=== PATIENT | male | born 1975 | race American Indian/Alaskan Native ===

== ENCOUNTER 2020-12-15 03:22 | Emergency (ER) | payer SELFPAY ==
[2020-12-15 03:34] VITALS: BP 150/109
[2020-12-15] MEDS ORDERED: ASPIRIN 325 MG TAB PO ONE (03:59)
--- NOTE | 2020-12-15 04:03 | Event Note ---
ED Screening Note Date of service: 12/15/20 Time: 04:01 ED Screening Note: Patient is a 45-year-old -[place] male with a history of hypertension and previously diagnosed with CHF presents to the ED with acute onset persistent shortness of breath and chest tightness for the last 2 hours during sexual intercourse. Patient states that the shortness of breath and the chest tightness is constant since the onset 2 hours ago. Patient states that prior to having sexual intercourse he had taken an [id number]-nrprelf stimulant capsule called "miracle honey" to enhance his sexual performance, and that this is the second time he had taken the supplement. Patient states that he has never exp erienced the symptoms during sexual intercourse. Patient denies diaphoresis, syncope, dizziness, headache, abdominal pain, nausea and vomiting, numbness and tingling of left arm or change in vision. This initial assessment/diagnostic orders/clinical plan/treatment(s) is/are subject to change based on patients health status, clinical progression and re- assessment by fellow clinical providers in the ED. Further treatment and workup at subsequent clinical providers discretion. Patient/guardian urged not to elope from the ED as their condition may be serious if not clinically assessed and managed. Initial orders include: CBC, CMP, troponin, CXR, EKG, aspirin, BNP
--- NOTE | 2020-12-15 04:29 | XRay Report ---
CHEST 2 VIEWS INDICATION / CLINICAL INFORMATION: Chest Pain. COMPARISON: 12/10/09. FINDINGS: SUPPORT DEVICES: None. HEART / MEDIASTINUM: There is mild cardiomegaly and prominence of the central pulmonary vessels. The aorta is normal in caliber. LUNGS / PLEURA: Interstitial lung markings are mildly increased with Libia B lines and slight thicke anjelica of the fissures. No focal consolidation or effusion. No pneumothorax. ADDITIONAL FINDINGS: No significant additional findings. IMPRESSION: Mild cardiomegaly and mild congestive heart failure. Signer Name: Kelvin Castellanos MD Signed: 12/15/2020 4:24 AM Workstation Name: [id number] ([id number]
[2020-12-15 04:41] LABS: Basophils % (Auto) 0.9 % (0.0-1.8); Eosinophils # (Auto) 0.2 K/mm3 (0.0-0.4); Eosinophils % (Auto) 3.9 % (0.0-4.3); Hematocrit 45.8 % (35.5-45.6); Hemoglobin 15.7 gm/dl (11.8-15.2); Lymphocytes # (Auto) 2.3 K/mm3 (1.2-5.4); Mean Corpuscular HGB Conc 34 % (32-34); Mean Corpuscular Volume 100 fl (84-94); Monocytes # (Auto) 0.4 K/mm3 (0.0-0.8); Monocytes % (Auto) 7.5 % (0.0-7.3); Platelet Count 181 K/mm3 (140-440); Red Blood Count 4.57 M/mm3 (3.65-5.03); Red Cell Distribution Width 15.1 % (13.2-15.2)
[2020-12-15 04:50] LABS: BUN/Creatinine Ratio 12; Blood Urea Nitrogen 14 mg/dL (9-20); Calcium 8.5 mg/dL (8.4-10.2); Hemolysis Index 9
[2020-12-15 04:52] LABS: Alanine Aminotransferase 25 units/L (7-56); Albumin 4.2 g/dL (3.9-5)
[2020-12-15 04:59] LABS: Bilirubin,Direct < 0.2 mg/dL (0-0.2)
--- NOTE | 2020-12-15 06:33 | Emergency Department Report ---
Blank Doc - Documentation Documentation: Patient eloped before I see him.
--- NOTE | 2020-12-16 10:39 | Electrocardiograph Report ---
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
== END 2020-12-15 07:13 | disposition left against medical advice (07) ==
LOC: ED 03:22
DX: R07.89 Other chest pain (principal); Z53.21 Procedure and treatment not carried out due to patient leaving prior to being seen by health care provider
CPT/HCPCS: 36415; 71046; 80048; 80076; 83880; 85025; 93005

== ENCOUNTER 2021-02-13 09:15 | Emergency (ER) | payer SELFPAY ==
--- NOTE | 2021-02-13 10:21 | Emergency Department Report ---
HPI - General Chief Complaint: GI Bleed Time Seen by Provider: 02/13/21 09:52 - HPI HPI: This is a 45-year-old -Congolese male who presents to the emergency department with 2 complaints. First, the patient has been having a 2-day history of low back pain. He says that it started just as he was getting out of the car. But otherwise he denies any trauma or injury, new exercise regimen, any heavy lifting, or obvious inciting event. He denies any problems with incontinence, bowel or bladder retention, numbness or paresthesias, weakness, or any neurological deficits. He has not taken anything for his symptoms prior to presentation. Secondly, the patient had a bowel movement this morning in which he saw gross red blood in the toilet. He denies any rectal pain. He denies any previous history of this. Patient denies any past medical history. He is a tobacco smoker. ED Past Medical Hx - Past Medical History Previous Medical History?: Yes Hx Hypertension: Yes Hx Congestive Heart Failure: Yes - Surgical History Past Surgical History?: No - Social History Smoking Status: Never Smoker Substance Use Type: None - Medications Home Medications: Home Medications Medication Instructions Recorded Confirmed Last Taken Type hydroCHLOROthiazide [HCTZ] 12.5 mg PO QDAY #30 capsule 12/07/14 Unknown Rx Cyclobenzaprine [Flexeril] 10 mg PO TID PRN #12 tablet 02/13/21 Unknown Rx ED Review of Systems ROS: Stated complaint: POSS GI BLEED Other details as noted in HPI Comment: All other systems reviewed and negative Constitutional: denies: chills, fever Eyes: denies: eye pain, vision change ENT: denies: ear pain, throat pain Respiratory: denies: cough, shortness of breath Cardiovascular: denies: chest pain, palpitations Gastrointestinal: hematochezia. denies: abdominal pain, vomiting Genitourinary: denies: dysuria, discharge Musculoskeletal: back pain. denies: arthralgia Skin: denies: rash, lesions Neurological: denies: headache, weakness Physical Exam - Physical Exam Physical Exam: GENERAL: The patient is well-developed well-nourished. HENT: Normocephalic. Atraumatic. Patient has moist mucous membranes. EYES: Extraocular motions are intact. NECK: Supple. Trachea is midline. CHEST/LUNGS: Clear to auscultation. There is no respiratory distress noted. HEART/CARDIOVASCULAR: Regular. There is no tachycardia. There is no murmur. ABDOMEN: Abdomen is soft, nontender. Patient has normal bowel sounds. There is no abdominal distention. SKIN: Skin is warm and dry. NEURO: The patient is awake, alert, and oriented. The patient is cooperative. The patient has no focal neurologic deficits. Normal speech. MUSCULOSKELETAL: There is no tenderness or deformity. There is no limitation range of motion. RECTAL: No external hemorrhoids or lesions seen. No gross melena or hematochezia. Stool is positive on guaiac testing. BACK: No midline thoracic or lumbar tenderness to palpation. There is reproducible lumbar paraspinal tenderness to palpation bilaterally with associated taut musculature. ED Medical Decision Making - Lab Data Result diagrams: 02/13/21 10:24 02/13/21 10:24 Lab Results 02/13/21 02/13/21 Range/Units 10:24 10:24 WBC 4.1 L (4.5-11.0) K/mm3 RBC 4.27 (3.65-5.03) M/mm3 Hgb 14.7 (11.8-15.2) gm/dl Hct 42.9 (35.5-45.6) % MCV 100 H (84-94) fl MCH 34 H (28-32) pg MCHC 34 (32-34) % RDW 14.2 (13.2-15.2) % Plt Count 158 (140-440) K/mm3 Lymph % (Auto) 38.5 H (13.4-35.0) % Ulster % (Auto) 7.0 (0.0-7.3) % Eos % (Auto) 2.5 (0.0-4.3) % Baso % (Auto) 1.0 (0.0-1.8) % Lymph # (Auto) 1.7 (1.2-5.4) K/mm3 Ulster # (Auto) 0.3 (0.0-0.8) K/mm3 Eos # (Auto) 0.1 (0.0-0.4) K/mm3 Baso # (Auto) 0.0 (0.0-0.1) K/mm3 Add Manual Diff Complete Seg Neutrophils % 51.0 (40.0-70.0) % Nucleated RBC % Not Reportable Seg Neutrophils # 2.2 (1.8-7.7) K/mm3 WBC Morphology Not Reportable Hypersegmented Neuts Not Reportable Hyposegmented Neuts Not Reportable Hypogranular Neuts Not Reportable Smudge Cells Not Reportable Toxic Granulation Not Reportable Toxic Vacuolation Not Reportable Dohle Bodies Not Reportable Pelger-Huet Anomaly Not Reportable Cassandra Rods Not Reportable Platelet Estimate Not Reportable Clumped Platelets Not Reportable Plt Clumps, EDTA Not Reportable Large Platelets Not Reportable Giant Platelets Not Reportable Platelet Satelliting Not Reportable Plt Morphology Comment Not Reportable RBC Morphology Not Reportable Dimorphic RBCs Not Reportable Polychromasia Not Reportable Hypochromasia Not Reportable Poikilocytosis Not Reportable Anisocytosis Not Reportable Microcytosis Not Reportable Macrocytosis Not Reportable Spherocytes Not Reportable Pappenheimer Bodies Not Reportable Sickle Cells Not Reportable Target Cells Not Reportable Tear Drop Cells Not Reportable Ovalocytes Not Reportable Helmet Cells Not Reportable Avendaño-Alvo Bodies Not Reportable Pratt Rings Not Reportable [place] Cells Not Reportable Bite Cells Not Reportable Crenated Cell Not Reportable Elliptocytes Not Reportable Acanthocytes (Spur) Not Reportable Rouleaux Not Reportable Hemoglobin C Crystals Not Reportable Schistocytes Not Reportable Malaria parasites Not Reportable Jorge Bodies Not Reportable Hem Pathologist Commnt Not Reportable Sodium 142 (137-145) mmol/L Potassium 3.7 (3.6-5.0) mmol/L Chloride 104.7 (98-107) mmol/L Carbon Dioxide 29 (22-30) mmol/L Anion Gap 12 mmol/L BUN 14 (9-20) mg/dL Creatinine 1.1 (0.8-1.3) mg/dL Estimated GFR > 60 ml/min BUN/Creatinine Ratio 13 % Glucose 98 (75-100) mg/dL Calcium 8.5 (8.4-10.2) mg/dL - Medical Decision Making Regarding the patient's rectal bleeding with bright red blood, the patient does not appear in any acute distress. Rectal examination does not show any external hemorrhoid or lesion. There is no gross melena or hematochezia. Stool obtained was positive on guaiac testing. Patient's hemoglobin is 14.7. Patient will be discharged home to follow-up with gastroenterology and understands that he may need a colonoscopy in the near future. He will return to the closest emergency department with any increased rectal bleeding, or with any acute distress. The patient's low back pain occurred while he was getting out of a car. However, there was no other known trauma, injury or inciting event. There is no midline tenderness to palpation in the paraspinal lumbar muscles are taut with reproducible tenderness to palpation in this area. Patient does not have any issues with ambulation. There is no numbness or paresthesia, especially in the groin, and there is no bowel or bladder incontinence or retention. The edita adler's low back pain does not appear to be any emergent condition such as cauda equina, cord compression syndrome or any epidural abscess. He will be placed on a muscle relaxer. We discussed using heat or ice, although not directly against the skin, as well as some gentle stretching. He has been given a referral for a local orthopedist. Critical Care Time: No Critical care attestation.: If time is entered above; I have spent that time in minutes in the direct care of this critically ill patient, excluding procedure time. ED Disposition Clinical Impression: Rectal bleeding Low back pain Qualifiers: Chronicity: unspecified Back pain laterality: bilateral Sciatica presence: without sciatica Qualified Code(s): M54.5 - Low back pain Disposition: - TO HOME OR SELFCARE Is pt being admited?: No Condition: Stable Instructions: Rectal Bleeding, Acute Back Pain, Adult Additional Instructions: Please follow-up with a primary care physician in the next 2 days. I have given you a referral for [facility] to follow-up regarding the rectal bleeding. You may need a colonoscopy in the near future. I have given you a referral for a local orthopedist, Dr. Hopper, to follow-up regarding the low back pain. You have been prescribed a medication that is sedating and therefore should not be taken prior to driving, working, and responsible for children and in no way should be mixed with alcohol of any quantity. Return to the emergency department with any worsening of your symptoms, new or concerning symptoms not addressed during this current emergency department visit, or with any acute distress. Prescriptions: Cyclobenzaprine [Flexeril] 10 mg PO TID PRN #12 tablet PRN Reason: Muscle Spasm Referrals: PRIMARY CARE, [Primary Care Provider] - 3-5 Days [facility] [Provider Group] - 3-5 Days LEXI HOPPER MD [Staff Physician] - 3-5 Days Forms: Accompanied Note Time of Disposition: 11:40
[2021-02-13 11:13] LABS: Hematocrit 42.9 % (35.5-45.6); Hemoglobin 14.7 gm/dl (11.8-15.2); Mean Corpuscular HGB Conc 34 % (32-34); Mean Corpuscular Volume 100 fl (84-94); Platelet Count 158 K/mm3 (140-440); Red Blood Count 4.27 M/mm3 (3.65-5.03); Red Cell Distribution Width 14.2 % (13.2-15.2)
[2021-02-13 11:32] LABS: BUN/Creatinine Ratio 13; Blood Urea Nitrogen 14 mg/dL (9-20); Calcium 8.5 mg/dL (8.4-10.2); Hemolysis Index 10
[2021-02-13 11:45] VITALS: BP 150/89
[2021-02-13 12:19] LABS: Eosinophils # (Auto) 0.1 K/mm3 (0.0-0.4); Eosinophils % (Auto) 2.5 % (0.0-4.3); Lymphocytes # (Auto) 1.7 K/mm3 (1.2-5.4); Lymphocytes % (Auto) 38.5 % (13.4-35.0); Monocytes # (Auto) 0.3 K/mm3 (0.0-0.8)
== END 2021-02-13 11:43 | disposition home or self-care (01) ==
LOC: ED 09:15
DX: K62.5 Hemorrhage of anus and rectum (principal); M54.5 Low back pain; I11.0 Hypertensive heart disease with heart failure; I50.9 Heart failure, unspecified; Z79.899 Other long term (current) drug therapy
CPT/HCPCS: 36415; 80048; 85007; 85025

== ENCOUNTER 2021-03-09 00:46 | Inpatient (IN) | payer OTHER ==
[2021-03-09] MEDS ORDERED: ASPIRIN 325 MG TAB PO ONE (00:53)
[2021-03-09] MEDS ORDERED: SODIUM CHLORIDE 0.9% 1000 ML 1,000 ML IV ONE (01:37)
--- NOTE | 2021-03-09 01:38 | Emergency Department Report ---
HPI - General Chief Complaint: Dyspnea/Respdistress Time Seen by Provider: 03/09/21 01:34 - HPI HPI: 45-year-old male with history of hypertension, and CHF presents complaining of approximately 2 days of verity of symptoms including dry cough, low back pain, and then today he says he developed shortness of breath and palpitations. He also reports feeling very lightheaded. His shortness of breath is worse with exertion. He says he is eating and drinking but his stomach feels irritated. He is not vomiting. He has no abdominal pain. He does say he has not been taking any of his prescribed medications due to not having insurance. He denies having any chest pain. He also denies any headache, vision change, neck pain, syncope, focal weakness, sensory changes, saddle anesthesia, bowel/bladder incontinence/retention, increased lower extremity swelling, or any other complaints but he says he feels very dehydrated and that his mouth is dry. ED Past Medical Hx - Past Medical History Previous Medical History?: Yes Hx Hypertension: Yes Hx Congestive Heart Failure: Yes - Surgical History Past Surgical History?: No - Social History Smoking Status: Never Smoker Substance Use Type: None - Medications Home Medications: Home Medications Medication Instructions Recorded Confirmed Last Taken Type hydroCHLOROthiazide [HCTZ] 12.5 mg PO QDAY #30 capsule 12/07/14 Unknown Rx Cyclobenzaprine [Flexeril] 10 mg PO TID PRN #12 tablet 02/13/21 Unknown Rx ED Review of Systems ROS: Stated complaint: ASHLEY Other details as noted in HPI Physical Exam - Physical Exam Vital Signs: Vital Signs 03/09/21 03/09/21 03/09/21 00:52 01:14 01:16 Temperature 99 F Pulse Rate 102 H 107 H 110 H Respiratory 18 12 11 L Rate Blood Pressure Blood Pressure 165/115 [Left] O2 Sat by Pulse 99 96 96 Oximetry 03/09/21 01:30 Temperature Pulse Rate 102 H Respiratory 17 Rate Blood Pressure 163/112 Blood Pressure [Left] O2 Sat by Pulse 97 Oximetry Physical Exam: GENERAL: Well developed and well nourished. In mild respiratory distress HEENT: Normocephalic. No obvious signs of trauma. Very dry mucous membranes. EYES: Extraocular movements are intact. Pupils are equal round and reactive to light bilaterally NECK: Supple. Trachea is midline. LUNGS: In mild respiratory distress. No accessory muscle use. Equal chest rise bilaterally. Lung auscultation reveals coarse breath sounds but no rales or wheezes appreciated.. HEART/CARDIOVASCULAR: Tachycardic but with regular rhythm. No murmurs or rubs. VASCULAR: 2+ peripheral pulses. Cap refill < 2 seconds ABDOMEN: Abdomen is soft and nondistended. There is no significant tenderness, guarding or rebound. SKIN: Skin is warm and dry NEURO: Patient is awake, alert, and oriented. 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 No focal deficits. Normal motor and sensory exam throughout. Normal speech. MUSCULOSKELETAL: No obvious deformities. No significant tenderness. Normal ROM throughout. BACK/SPINE: No midline tenderness or step-offs of the C/T/L spine. However, there is tenderness of the entire lower back bilaterally and in the middle but not specifically in the mid spine. ED Course Vital Signs 03/09/21 03/09/21 03/09/21 00:52 01:14 01:16 Temperature 99 F Pulse Rate 102 H 107 H 110 H Respiratory 18 12 11 L Rate Blood Pressure Blood Pressure 165/115 [Left] O2 Sat by Pulse 99 96 96 Oximetry 03/09/21 01:30 Temperature Pulse Rate 102 H Respiratory 17 Rate Blood Pressure 163/112 Blood Pressure [Left] O2 Sat by Pulse 97 Oximetry ED Medical Decision Making - Lab Data Result diagrams: 03/09/21 01:30 03/09/21 05:18 Lab Results 03/09/21 03/09/21 03/09/21 Range/Units 01:30 01:30 01:30 WBC 4.3 L (4.5-11.0) K/mm3 RBC 4.66 (3.65-5.03) M/mm3 Hgb 15.7 H (11.8-15.2) gm/dl Hct 45.9 H (35.5-45.6) % MCV 98 H (84-94) fl MCH 34 H (28-32) pg MCHC 34 (32-34) % RDW 13.9 (13.2-15.2) % Plt Count 186 (140-440) K/mm3 Lymph % (Auto) 24.6 (13.4-35.0) % [place] % (Auto) 12.2 H (0.0-7.3) % Eos % (Auto) 0.3 (0.0-4.3) % Baso % (Auto) 1.2 (0.0-1.8) % Lymph # (Auto) 1.1 L (1.2-5.4) K/mm3 [place] # (Auto) 0.5 (0.0-0.8) K/mm3 Eos # (Auto) 0.0 (0.0-0.4) K/mm3 Baso # (Auto) 0.1 (0.0-0.1) K/mm3 Seg Neutrophils % 61.7 (40.0-70.0) % Seg Neutrophils # 2.6 (1.8-7.7) K/mm3 D-Dimer (0-234) ng/mlDDU Sodium 138 (137-145) mmol/L Potassium 3.6 (3.6-5.0) mmol/L Chloride 101.3 (98-107) mmol/L Carbon Dioxide 24 (22-30) mmol/L Anion Gap 16 mmol/L BUN 14 (9-20) mg/dL Creatinine 1.1 (0.8-1.3) mg/dL Estimated GFR > 60 ml/min BUN/Creatinine Ratio 13 % Glucose 109 H (75-100) mg/dL Calcium 8.5 (8.4-10.2) mg/dL Magnesium 1.90 (1.7-2.3) mg/dL Ferritin (30.0-300.0) ng/mL Total Bilirubin 0.80 (0.1-1.2) mg/dL AST 23 (5-40) units/L ALT 14 (7-56) units/L Alkaline Phosphatase 96 (35-129) units/L Lactate Dehydrogenase (91-180) units/L Troponin T 0.011 (0.00-0.029) ng/mL C-Reactive Protein (0.00-1.30) mg/dL NT-Pro-B Natriuret Pep 2929 H (0-450) pg/mL Total Protein 7.4 (6.3-8.2) g/dL Albumin 4.0 (3.9-5) g/dL Albumin/Globulin Ratio 1.2 % 03/09/21 03/09/21 03/09/21 Range/Units 05:18 05:18 05:18 WBC (4.5-11.0) K/mm3 RBC (3.65-5.03) M/mm3 Hgb (11.8-15.2) gm/dl Hct (35.5-45.6) % MCV (84-94) fl MCH (28-32) pg MCHC (32-34) % RDW (13.2-15.2) % Plt Count (140-440) K/mm3 Lymph % (Auto) (13.4-35.0) % [place] % (Auto) (0.0-7.3) % Eos % (Auto) (0.0-4.3) % Baso % (Auto) (0.0-1.8) % Lymph # (Auto) (1.2-5.4) K/mm3 [place] # (Auto) (0.0-0.8) K/mm3 Eos # (Auto) (0.0-0.4) K/mm3 Baso # (Auto) (0.0-0.1) K/mm3 Seg Neutrophils % (40.0-70.0) % Seg Neutrophils # (1.8-7.7) K/mm3 D-Dimer 415.01 H (0-234) ng/mlDDU Sodium (137-145) mmol/L Potassium (3.6-5.0) mmol/L Chloride (98-107) mmol/L Carbon Dioxide (22-30) mmol/L Anion Gap mmol/L BUN (9-20) mg/dL Creatinine (0.8-1.3) mg/dL Estimated GFR ml/min BUN/Creatinine Ratio % Glucose 95 (75-100) mg/dL Calcium (8.4-10.2) mg/dL Magnesium (1.7-2.3) mg/dL Ferritin (30.0-300.0) ng/mL Total Bilirubin (0.1-1.2) mg/dL AST (5-40) units/L ALT (7-56) units/L Alkaline Phosphatase (35-129) units/L Lactate Dehydrogenase 268 H (91-180) units/L Troponin T < 0.010 (0.00-0.029) ng/mL C-Reactive Protein 1.80 H (0.00-1.30) mg/dL NT-Pro-B Natriuret Pep (0-450) pg/mL Total Protein (6.3-8.2) g/dL Albumin (3.9-5) g/dL Albumin/Globulin Ratio % 03/09/ Range/Units 05:18 WBC (4.5-11.0) K/mm3 RBC (3.65-5.03) M/mm3 Hgb (11.8-15.2) gm/dl Hct (35.5-45.6) % MCV (84-94) fl MCH (28-32) pg MCHC (32-34) % RDW (13.2-15.2) % Plt Count (140-440) K/mm3 Lymph % (Auto) (13.4-35.0) % [place] % (Auto) (0.0-7.3) % Eos % (Auto) (0.0-4.3) % Baso % (Auto) (0.0-1.8) % Lymph # (Auto) (1.2-5.4) K/mm3 [place] # (Auto) (0.0-0.8) K/mm3 Eos # (Auto) (0.0-0.4) K/mm3 Baso # (Auto) (0.0-0.1) K/mm3 Seg Neutrophils % (40.0-70.0) % Seg Neutrophils # (1.8-7.7) K/mm3 D-Dimer (0-234) ng/mlDDU Sodium (137-145) mmol/L Potassium (3.6-5.0) mmol/L Chloride (98-107) mmol/L Carbon Dioxide (22-30) mmol/L Anion Gap mmol/L BUN (9-20) mg/dL Creatinine (0.8-1.3) mg/dL Estimated GFR ml/min BUN/Creatinine Ratio % Glucose (75-100) mg/dL Calcium (8.4-10.2) mg/dL Magnesium (1.7-2.3) mg/dL Ferritin 186.1 (30.0-300.0) ng/mL Total Bilirubin (0.1-1.2) mg/dL AST (5-40) units/L ALT (7-56) units/L Alkaline Phosphatase (35-129) units/L Lactate Dehydrogenase (91-180) units/L Troponin T (0.00-0.029) ng/mL C-Reactive Protein (0.00-1.30) mg/dL NT-Pro-B Natriuret Pep (0-450) pg/mL Total Protein (6.3-8.2) g/dL Albumin (3.9-5) g/dL Albumin/Globulin Ratio % - EKG Data -: EKG Interpreted by Me - EKG Data 03/09/21 07:08 Normal sinus rhythm. Left axis deviation. Normal intervals. No ectopy. Inverted T waves noted in leads I, aVL, and V4 through V6 with some minimal ST depression. There are no significant ST segment elevations. - Radiology Data CHEST 2 VIEWS INDICATION / CLINICAL INFORMATION: chest pain. COMPARISON: None available. FINDINGS: SUPPORT DEVICES: None. HEART / MEDIASTINUM: No significant abnormality. LUNGS / PLEURA: There are bilateral pulmonary opacities right greater than left. There is some mild nodularity. No pneumothorax. ADDITIONAL FINDINGS: No significant additional findings. IMPRESSION: 1. There are bilateral peripheral opacities right greater than left. This is better demonstrated on the patient's CT scan performed earlier. This may represent an infectious process including atypical infection such as fungal or mycobacterial. Sarcoidosis is included in the differential diagnosis. Neoplasm is included in the differential diagnosis but felt to be less likely. Signer Name: Thuan Worthy MD Signed: 03/09/2021 2:37 AM Workstation Name: [id number] CTA CHEST WITH CONTRAST INDICATION / CLINICAL INFORMATION: rule out PE. TECHNIQUE: Axial CT images were obtained through the chest after injection of 100 cc of Omnipaque 350 IV contrast. 3 plane MIP and/or 3D reconstructions were produced. All CT scans at this location are performed using CT dose reduction for ALARA by means of automated exposure control. COMPARISON: None available. FINDINGS: PULMONARY ARTERIES: No pulmonary emboli. THORACIC AORTA: No significant abnormality. HEART: Mildly enlarged CORONARY ARTERY CALCIFICATION: None. MEDIASTINUM / ALDEN: There is adenopathy in the mediastinum and left hilum PLEURA: No pleural effusion. No pneumothorax. LUNGS: There are bilateral pulmonary opacities greater on the right than the left. There are groundglass densities airspace opacities and multiple small nodular densities. ADDITIONAL FINDINGS: None. UPPER ABDOMEN: No acute findings. SKELETAL STRUCTURES: No acute abnormality IMPRESSION: 1. No CT evidence for pulmonary embolism. 2. Bilateral pulmonary opacities right greater than left. This includes extensive nodularity also groundglass density and small areas of airspace opacity. The appearance is most consistent with an infectious etiology including atypical infection such as fungal or mycobacterial. The possibility that this could represent a neoplastic process is considered in the differential diagnosis. Sarcoidosis is also included in the differential diagnosis. 3. There is mediastinal adenopathy. CT ABDOMEN AND PELVIS WITH CONTRAST INDICATION / CLINICAL INFORMATION: Back pain. TECHNIQUE: Axial CT images were obtained through the abdomen and pelvis after 100 cc of Omnipaque [address] scans at this location are performed using CT dose reduction for ALARA by means of automated exposure control. COMPARISON: None available. FINDINGS: LOWER CHEST: No significant abnormality. LIVER: There is a tiny indeterminate hypodensity in the dome of the liver. GALLBLADDER: No significant abnormality. BILE DUCTS: No significant abnormality. PANCREAS: No significant abnormality. SPLEEN: No significant abnormality. ADRENALS: No significant abnormality. RIGHT KIDNEY / URETER: No significant abnormality. LEFT KIDNEY / URETER: No significant abnormality. STOMACH / SMALL BOWEL: No significant abnormality. COLON: Diverticulosis without acute inflammation. APPENDIX: No significant abnormality. PERITONEUM: No free fluid. No free air. No fluid collection. LYMPH NODES: No significant adenopathy. AORTA / ARTERIES: No significant abnormality. IVC / VEINS: No significant abnormality. URINARY BLADDER: No significant abnormality. REPRODUCTIVE ORGANS: No significant abnormality. ADDITIONAL FINDINGS: None. SKELETAL SYSTEM: No significant abnormality. IMPRESSION: 1. There is no obstruction, inflammation, or free air. There are no abnormal fluid collections. Signer Name: Thuan gaspar MD Signed: 03/09/2021 2:21 AM Workstation Name: [id number] - Medical Decision Making 45-year-old male with history of hypertension and CHF noncompliant with medications presents with 2 days of dry cough and now with 1 day of constant lower back pain, shortness of breath, palpitations, and lightheadedness. On initial assessment, he has a low-grade temperature and is tachycardic in the 100s to 110s. His oxygen saturation is normal. He has very dry mucous membranes. He has tenderness of his bilateral lower back and in the middle as well. Lung auscultation reveals coarse breath sounds throughout but no rales or wheezes appreciated. The patient has no chest pain. We will perform broad work-up with a full set of labs including blood and urine cultures, troponin, BNP. We will obtain a chest x-ray. Additionally, the patient's EKG shows left axis deviation, inverted T waves noted in leads I, aVL, and V4 through V6. It does not meet STEMI criteria however it may represent ischemic changes. Given the atypical presentation with back pain and palpitations and tachycardia we will also obtain CTA of the chest/abdomen/pelvis to assess for evidence of pulmonary embolism. Given that he appears dry and does not appear volume overloaded we will give 1 L of IV fluids and aspirin for now. The patient's labs have resulted and reveal white blood cell count of 4.3 and hemoglobin of 15.7. He does have an elevated BNP of 2929. Troponin is negative at 0.011. At 3:30 AM, CTA of the chest/abdomen/pelvis was resulted in reveals bilateral pulmonary opacities with atypical features suggestive of either atypical infection, mycobacterial infection, fungal infection, or sarcoidosis. Given evidence of pneumonia with these abnormal findings, I have administered broad- spectrum IV vancomycin, cefepime, and azithromycin. On repeat assessment, the patient remains without significant deterioration. I explained the results of his scans and the need for admission for further work-up and management. He expressed understanding agreement with this plan of care. Given that he is already had a CTA to rule out PE, I have also ordered the coronavirus order set. I spoke with the on-call hospitalist, Dr. Hardy who accepts the patient for admission and will assume care. Critical care attestation.: If time is entered above; I have spent that time in minutes in the direct care of this critically ill patient, excluding procedure time. ED Disposition Clinical Impression: Pneumonia, CHF (congestive heart failure), Dehydration Disposition: OP ADMIT IP TO THIS HOSP Is pt being admited?: Yes Condition: Stable
[2021-03-09 01:45] LABS: Basophils # (Auto) 0.1 K/mm3 (0.0-0.1); Basophils % (Auto) 1.2 % (0.0-1.8); Eosinophils % (Auto) 0.3 % (0.0-4.3); Hematocrit 45.9 % (35.5-45.6); Hemoglobin 15.7 gm/dl (11.8-15.2); Lymphocytes # (Auto) 1.1 K/mm3 (1.2-5.4); Lymphocytes % (Auto) 24.6 % (13.4-35.0); Mean Corpuscular HGB Conc 34 % (32-34); Mean Corpuscular Volume 98 fl (84-94); Monocytes # (Auto) 0.5 K/mm3 (0.0-0.8); Monocytes % (Auto) 12.2 % (0.0-7.3); Platelet Count 186 K/mm3 (140-440); Red Blood Count 4.66 M/mm3 (3.65-5.03); Red Cell Distribution Width 13.9 % (13.2-15.2)
[2021-03-09 02:02] LABS: Alanine Aminotransferase 14 units/L (7-56); BUN/Creatinine Ratio 13; Blood Urea Nitrogen 14 mg/dL (9-20); Calcium 8.5 mg/dL (8.4-10.2); Hemolysis Index 10
--- NOTE | 2021-03-09 03:25 | Cat Scan Report ---
CTA CHEST WITH CONTRAST INDICATION / CLINICAL INFORMATION: rule out PE. TECHNIQUE: Axial CT images were obtained through the chest after injection of 100 cc of Omnipaque 350 IV contrast. 3 plane MIP and/or 3D reconstructions were produced. All CT scans at this location are performed using CT dose reduction for ALARA by means of automated exposure control. COMPARISON: None available. FINDINGS: PULMONARY ARTERIES: No pulmonary emboli. THORACIC AORTA: No significant abnormality. HEART: Mildly enlarged CORONARY ARTERY CALCIFICATION: None. MEDIASTINUM / ALDEN: There is adenopathy in the mediastinum and left hilum PLEURA: No pleural effusion. No pneumothorax. LUNGS: There are bilateral pulmonary opacities greater on the right than the left. There are groundgl ass densities airspace opacities and multiple small nodular densities. ADDITIONAL FINDINGS: None. UPPER ABDOMEN: No acute findings. SKELETAL STRUCTURES: No acute abnormality IMPRESSION: 1. No CT evidence for pulmonary embolism. 2. Bilateral pulmonary opacities right greater than left. This includes extensive nodularity also khalif undglass density and small areas of airspace opacity. The appearance is most consistent with an infec tious etiology including atypical infection such as fungal or mycobacterial. The possibility that thi s could represent a neoplastic process is considered in the differential diagnosis. Sarcoidosis is al so included in the differential diagnosis. 3. There is mediastinal adenopathy. CT ABDOMEN AND PELVIS WITH CONTRAST INDICATION / CLINICAL INFORMATION: Back pain. TECHNIQUE: Axial CT images were obtained through the abdomen and pelvis after 100 cc of Omnipaque [address] scans at this location are performed using CT dose reduction for ALARA by means of automated exposure control. COMPARISON: None available. FINDINGS: LOWER CHEST: No significant abnormality. LIVER: There is a tiny indeterminate hypodensity in the dome of the liver. GALLBLADDER: No significant abnormality. BILE DUCTS: No significant abnormality. PANCREAS: No significant abnormality. SPLEEN: No significant abnormality. ADRENALS: No significant abnormality. RIGHT KIDNEY / URETER: No significant abnormality. LEFT KIDNEY / URETER: No significant abnormality. STOMACH / SMALL BOWEL: No significant abnormality. COLON: Diverticulosis without acute inflammation. APPENDIX: No significant abnormality. PERITONEUM: No free fluid. No free air. No fluid collection. LYMPH NODES: No significant adenopathy. AORTA / ARTERIES: No significant abnormality. IVC / VEINS: No significant abnormality. URINARY BLADDER: No significant abnormality. REPRODUCTIVE ORGANS: No significant abnormality. ADDITIONAL FINDINGS: None. SKELETAL SYSTEM: No significant abnormality. IMPRESSION: 1. There is no obstruction, inflammation, or free air. There are no abnormal fluid collections. Signer Name: Thuan Worthy MD Signed: 03/09/2021 3:21 AM Workstation Name: [id number]
[2021-03-09] MEDS ORDERED: AZITHROMYCIN/NS 500 MG/250 ML 500 MG/250 ML BAG IV ONE (03:31)
[2021-03-09] MEDS ORDERED: CEFEPIME/NS 2 GM/100 ML 2 GM/100 ML BAG IV ONE (03:31)
[2021-03-09] MEDS ORDERED: VANCOMYCIN 1,500 MG in SODIUM CHLORIDE 0.9% 500 ML 500 ML IV ONE (03:31)
--- NOTE | 2021-03-09 03:42 | XRay Report ---
CHEST 2 VIEWS INDICATION / CLINICAL INFORMATION: chest pain. COMPARISON: None available. FINDINGS: SUPPORT DEVICES: None. HEART / MEDIASTINUM: No significant abnormality. LUNGS / PLEURA: There are bilateral pulmonary opacities right greater than left. There is some mild n odularity. No pneumothorax. ADDITIONAL FINDINGS: No significant additional findings. IMPRESSION: 1. There are bilateral peripheral opacities right greater than left. This is better demonstrated on t he patient's CT scan performed earlier. This may represent an infectious process including atypical i nfection such as fungal or mycobacterial. Sarcoidosis is included in the differential diagnosis. Neop lasm is included in the differential diagnosis but felt to be less likely. Signer Name: Thuan Worthy MD Signed: 03/09/2021 3:37 AM Workstation Name: [id number][id number]
[2021-03-09] MEDS ORDERED: HYDROmorphone 1 MG/1 ML INJ IV PRN (04:41)
[2021-03-09] MEDS ORDERED: ONDANSETRON 4 MG/2 ML INJ IV PRN (04:41)
[2021-03-09] MEDS ORDERED: oxyCODONE /ACETAMINOPHEN 5-325MG TAB PO PRN (04:41)
[2021-03-09] MEDS ORDERED: ALBUTEROL 2.5 MG/3 ML NEBU IH PRN (04:41)
[2021-03-09] MEDS ORDERED: ACETAMINOPHEN 325 MG TAB PO PRN (04:41)
[2021-03-09] MEDS ORDERED: CYCLOBENZAPRINE 10 MG TAB PO PRN (04:45)
--- NOTE | 2021-03-09 04:50 | History and Physical Report ---
History of Present Illness Date of examination: 03/09/21 Date of admission: 03/09/21 Chief complaint: Dyspnea Coughing History of present illness: 45-year-old male with history of hypertension, and CHF was brought to the emergency room because patient complained of shortness of breath associated dry cough, low back pain for the last 2 days. He also reports feeling very lightheaded. His shortness of breath is worse with exertion. He says he is eating and drinking but his stomach feels irritated. He is not vomiting. He has no abdominal pain. He does say he has not been taking any of his prescribed medications due to not having insurance. He denies having any chest pain. He also denies any headache, vision change, neck pain, syncope, focal weakness, sensory changes, saddle anesthesia, bowel/bladder incontinence/retention, increased lower extremity swelling, or any other complaints but he says he feels very dehydrated and that his mouth is dry. In the emergency room patient CT scan of the chest shows pneumonia. Past History Past Medical History: heart failure, hypertension Medications and Allergies Allergies Allergy/AdvReac Type Severity Reaction Status Date / Time No Known Allergies Allergy Verified 12/06/14 20:59 Home Medications Medication Instructions Recorded Confirmed Last Taken Type hydroCHLOROthiazide [HCTZ] 12.5 mg PO QDAY #30 capsule 12/07/14 Unknown Rx Cyclobenzaprine [Flexeril] 10 mg PO TID PRN #12 tablet 02/13/21 Unknown Rx Active Meds: Active Medications Acetaminophen (Acetaminophen 325 Mg Tab) 650 mg PO Q4H PRN PRN Reason: Pain MILD(1-3)/Fever >100.5/SANDOVAL Albuterol (Albuterol 2.5 Mg/3 Ml Nebu) 2.5 mg IH Q4HRT PRN PRN Reason: Shortness Of Breath Albuterol/Ipratropium (Ipratropium/Albuterol Sulfate 3 Ml Ampul.Neb) 1 ampul IH Q6HRT [facility] Cyclobenzaprine HCl (Cyclobenzaprine 10 Mg Tab) 10 mg PO TID PRN PRN Reason: Muscle Spasm Famotidine (Famotidine 20 Mg Tab) 20 mg PO BID [facility] Heparin Sodium (Porcine) (Heparin 5,000 Unit/1 Ml Vial) 5,000 unit SUB-Q Q8HR [facility] Hydrochlorothiazide (Hydrochlorothiazide 12.5 Mg Cap) 12.5 mg PO QDAY [facility] Hydromorphone HCl (Hydromorphone 1 Mg/1 Ml Inj) 0.5 mg IV Q3H PRN PRN Reason: Pain , Severe (7-10) Vancomycin HCl 1,500 mg/ (Sodium Chloride) 530 mls @ 333 mls/hr IV ONCE ONE; Protocol Stop: 03/09/21 05:09 Azithromycin (Zithromax/Ns) 500 mg in 250 mls @ 250 mls/hr IV Q24H [facility]; Protocol Vancomycin HCl (Vancomycin/Ns 1 Gm/250 Ml) 1 gm in 250 mls @ 166.667 mls/hr IV Q12H [facility]; Protocol Cefepime HCl (Cefepime/Ns 1 Gm/100 Ml) 1 gm in 100 mls @ 200 mls/hr IV Q8H [facility]; Protocol Ondansetron HCl (Ondansetron 4 Mg/2 Ml Inj) 4 mg IV Q8H PRN PRN Reason: Nausea And Vomiting Oxycodone/Acetaminophen (Oxycodone /Acetaminophen 5-325mg Tab) 1 tab PO Q6H PRN PRN Reason: Pain, Moderate (4-6) Sodium Chloride (Sodium Chloride 0.9% 10 Ml Flush Syringe) 10 ml IV BID [facility] Sodium Chloride (Sodium Chloride 0.9% 10 Ml Flush Syringe) 10 ml IV PRN PRN PRN Reason: LINE FLUSH Review of Systems Cardiovascular: palpitations, shortness of breath, dyspnea on exertion Respiratory: cough, shortness of breath, dyspnea on exertion Musculoskeletal: low back pain Exam - Constitutional Vitals: Temp Pulse Resp BP Pulse Ox 99 F 90 29 H 134/94 93 03/09/21 00:52 03/09/21 03:30 03/09/21 03:30 03/09/21 03:30 03/09/21 03:30 General appearance: Present: no acute distress, well-nourished - EENT Eyes: Present: PERRL ENT: hearing intact, clear oral mucosa - Neck Neck: Present: supple, normal ROM - Respiratory Respiratory effort: normal Respiratory: bilateral: diminished - Cardiovascular Heart Sounds: Present: S1 & S2. Absent: rub, click - Extremities Extremities: pulses symmetrical, No edema Peripheral Pulses: within normal limits - Abdominal General gastrointestinal: Present: soft, non-tender, non-distended, normal bowel sounds Male genitourinary: Present: normal - Integumentary Integumentary: Present: clear, warm, dry - Musculoskeletal Musculoskeletal: gait normal, strength equal bilaterally - Psychiatric Psychiatric: appropriate mood/affect, intact judgment & insight - Neurologic Neurologic: CNII-XII intact, moves all extremities HEART Score - HEART Score Troponin: Troponin T 0.011 ng/mL (0.00-0.029) 03/09/21 01:30 Results - Labs CBC & Chem 7: 03/09/21 01:30 03/09/21 01:30 Labs: Laboratory Last Values WBC 4.3 K/mm3 (4.5-11.0) L 03/09/21 01:30 RBC 4.66 M/mm3 (3.65-5.03) 03/09/21 01:30 Hgb 15.7 gm/dl (11.8-15.2) H 03/09/21 01:30 Hct 45.9 % (35.5-45.6) H 03/09/21 01:30 MCV 98 fl (84-94) H 03/09/21 01:30 MCH 34 pg (28-32) H 03/09/21 01:30 MCHC 34 % (32-34) 03/09/21 01:30 RDW 13.9 % (13.2-15.2) 03/09/21 01:30 Plt Count 186 K/mm3 (140-440) 03/09/21 01:30 Lymph % (Auto) 24.6 % (13.4-35.0) 03/09/21 01:30 [place] % (Auto) 12.2 % (0.0-7.3) H 03/09/21 01:30 Eos % (Auto) 0.3 % (0.0-4.3) 03/09/21 01:30 Baso % (Auto) 1.2 % (0.0-1.8) 03/09/21 01:30 Lymph # (Auto) 1.1 K/mm3 (1.2-5.4) L 03/09/21 01:30 [place] # (Auto) 0.5 K/mm3 (0.0-0.8) 03/09/21 01:30 Eos # (Auto) 0.0 K/mm3 (0.0-0.4) 03/09/21 01:30 Baso # (Auto) 0.1 K/mm3 (0.0-0.1) 03/09/21 01:30 Seg Neutrophils % 61.7 % (40.0-70.0) 03/09/21 01:30 Seg Neutrophils # 2.6 K/mm3 (1.8-7.7) 03/09/21 01:30 Sodium 138 mmol/L (137-145) 03/09/21 01:30 Potassium 3.6 mmol/L (3.6-5.0) 03/09/21 01:30 Chloride 101.3 mmol/L (98-107) 03/09/21 01:30 Carbon Dioxide 24 mmol/L (22-30) 03/09/21 01:30 Anion Gap 16 mmol/L 03/09/21 01:30 BUN 14 mg/dL (9-20) 03/09/21 01:30 Creatinine 1.1 mg/dL (0.8-1.3) 03/09/21 01:30 Estimated GFR > 60 ml/min 03/09/21 01:30 BUN/Creatinine Ratio 13 % 03/09/21 01:30 Glucose 109 mg/dL (75-100) H 03/09/21 01:30 Calcium 8.5 mg/dL (8.4-10.2) 03/09/21 01:30 Magnesium 1.90 mg/dL (1.7-2.3) 03/09/21 01:30 Total Bilirubin 0.80 mg/dL (0.1-1.2) 03/09/21 01:30 AST 23 units/L (5-40) 03/09/21 01:30 ALT 14 units/L (7-56) 03/09/21 01:30 Alkaline Phosphatase 96 units/L (35-129) 03/09/21 01:30 Troponin T 0.011 ng/mL (0.00-0.029) 03/09/21 01:30 NT-Pro-B Natriuret Pep 2929 pg/mL (0-450) H 03/09/21 01:30 Total Protein 7.4 g/dL (6.3-8.2) 03/09/21 01:30 Albumin 4.0 g/dL (3.9-5) 03/09/21 01:30 Albumin/Globulin Ratio 1.2 % 03/09/21 01:30 Microbiology: Microbiology 03/09/21 01:51 Peripheral/Venous Blood Culture - Preliminary Culture in Progress 03/09/21 01:55 Peripheral/Venous Blood Culture - Preliminary Culture in Progress - Imaging and Cardiology CT scan - chest: report reviewed Assessment and Plan VTE prophylaxis?: Chemical Plan of care discussed with patient/family: Yes - Patient Problems (1) Pneumonia Status: Acute Plan to address problem: Admit the patient to the medical telemetry. Oxygen by nasal cannula 3 L/min. DuoNeb by nebulizer every 4 hours. Cefepime 1 g IV every 8 hours, Zithromax 500 mg IV daily, vancomycin 1 g IV every 12 hours. We do the blood culture sputum culture. Will consult infectious disease for evaluation for infectious etiology. We also order for Covid test. Follow Covid PCR result. Recheck BMP CBC in the morning (2) Hypertension Status: Acute Plan to address problem: Hydrochlorothiazide 12.5 mg p.o. daily. We will monitor the blood pressure closely (3) CHF (congestive heart failure) Status: Acute Plan to address problem: Stable. Fluid restriction. We will continue the home medication. We will monitor the patient closely (4) DVT prophylaxis Status: Acute Plan to address problem: Heparin 5000 units subcu every 8 hours for DVT prophylaxis. Famotidine 20 mg p.o. twice daily for GI prophylaxis. Patient is a full code
[2021-03-09] MEDS ORDERED: VANCOMYCIN/NS 1 GM/250 ML 1 GM/250 ML BAG IV SCH (05:00)
[2021-03-09 06:37] LABS: C-Reactive Protein 1.8 mg/dL (0.00-1.30)
--- NOTE | 2021-03-09 08:17 | Progress Note ---
Assessment and Plan Assessment and plan: #1 multifocal pneumonia Admit the patient to the medical telemetry. Oxygen by nasal cannula 3 L/min, now off. DuoNeb by nebulizer every 4 hours. Cefepime 1 g IV every 8 hours, Zithromax 500 mg IV daily, vancomycin 1 g IV every 12 hours ordered on admission. Blood culture, sputum culture consult infectious disease #2 Covid PUI Patient is unvaccinated Covid RT-PCR pending. Infectious disease consulted #3 hypertension Hydrochlorothiazide 12.5 mg p.o. daily. We will monitor the blood pressure closely #4 back Pain Flexeril, Tylenol, Toradol as needed. #5 CHF (congestive heart failure) Status: Acute Plan to address problem: Stable. Fluid restriction. We will continue the home medication. We will monitor the patient closely #6 History of nicotine abuse Smokes 2 pack/day for several years Denies history of COPD or asthma #7 DVT prophylaxis Heparin 5000 units subcu every 8 hours for DVT prophylaxis. CODE STATUS: Full code Dispo: Pending Covid RT-PCR. Will follow for clinical improvement. If patient worsens may consider pulmonology consult. History Interval history: 03/09/2021: Patient this morning only had complaint of lumbar muscle spasms. He states that Flexeril given overnight was not helpful. He was on room air on my encounter, saturating 95%. He was not in respiratory distress. He states that he believes he acquired illness from his and child. He states he has not obtained the Covid vaccine. He does not know of anyone around him that had tested positive for Covid. Remainder of ROS negative except for stated above Hospitalist Physical - Physical exam Narrative exam: Physical Exam: GENERAL APPEARANCE: Well developed, well nourished, alert and cooperative. In mild distress from back pain HEAD: normocephalic. EYES: PERRL, EOMI. Vision is grossly intact. EARS: No gross deformities NOSE: No nasal discharge. THROAT: Oral cavity and pharynx normal. No inflammation, swelling, exudate, or lesions. Teeth and gingiva in good general condition. NECK: Neck supple, non-tender without lymphadenopathy, masses or thyromegaly. CARDIAC: Normal S1 and S2. No S3, S4 or murmurs. Rhythm is regular. There is no peripheral edema, cyanosis or pallor. Extremities are warm and well perfused. Capillary refill is less than 2 seconds. No carotid bruits. LUNGS: Clear to auscultation and percussion without rales, rhonchi, wheezing or diminished breath sounds. ABDOMEN: Positive bowel sounds. Soft, nondistended, nontender. No guarding or rebound. No masses. MUSKULOSKELETAL: Adequately aligned spine. ROM intact spine and extremities. . BACK: Examination of the spine reveals normal gait and posture. Tenderness parallel to lumbar spine and iliopsoas region. EXTREMITIES: No significant deformity or joint abnormality. No edema. Peripheral pulses intact. No varicosities. NEUROLOGICAL: CN II-XII intact. Strength and sensation symmetric and intact throughout. Reflexes 2+ throughout. PSYCHIATRIC: The mental examination revealed the patient was oriented to person, place, and time. - Constitutional Vitals: Temp Pulse Resp BP Pulse Ox 99 F 93 H 14 161/110 96 03/09/21 00:52 03/09/21 07:00 03/09/21 07:00 03/09/21 07:00 03/09/21 07:00 General appearance: Present: no acute distress, well-nourished HEART Score - HEART Score Troponin: Troponin T < 0.010 ng/mL (0.00-0.029) 03/09/21 05:18 Results - Labs CBC & Chem 7: 03/09/21 01:30 03/09/21 05:18 Labs: Laboratory Last Values WBC 4.3 K/mm3 (4.5-11.0) L 03/09/21 01:30 RBC 4.66 M/mm3 (3.65-5.03) 03/09/21 01:30 Hgb 15.7 gm/dl (11.8-15.2) H 03/09/21 01:30 Hct 45.9 % (35.5-45.6) H 03/09/21 01:30 MCV 98 fl (84-94) H 03/09/21 01:30 MCH 34 pg (28-32) H 03/09/21 01:30 MCHC 34 % (32-34) 03/09/21 01:30 RDW 13.9 % (13.2-15.2) 03/09/21 01:30 Plt Count 186 K/mm3 (140-440) 03/09/21 01:30 Lymph % (Auto) 24.6 % (13.4-35.0) 03/09/21 01:30 [place] % (Auto) 12.2 % (0.0-7.3) H 03/09/21 01:30 Eos % (Auto) 0.3 % (0.0-4.3) 03/09/21 01:30 Baso % (Auto) 1.2 % (0.0-1.8) 03/09/21 01:30 Lymph # (Auto) 1.1 K/mm3 (1.2-5.4) L 03/09/21 01:30 [place] # (Auto) 0.5 K/mm3 (0.0-0.8) 03/09/21 01:30 Eos # (Auto) 0.0 K/mm3 (0.0-0.4) 03/09/21 01:30 Baso # (Auto) 0.1 K/mm3 (0.0-0.1) 03/09/21 01:30 Seg Neutrophils % 61.7 % (40.0-70.0) 03/09/21 01:30 Seg Neutrophils # 2.6 K/mm3 (1.8-7.7) 03/09/21 01:30 D-Dimer 415.01 ng/mlDDU (0-234) H 03/09/21 05:18 Sodium 138 mmol/L (137-145) 03/09/21 01:30 Potassium 3.6 mmol/L (3.6-5.0) 03/09/21 01:30 Chloride 101.3 mmol/L (98-107) 03/09/21 01:30 Carbon Dioxide 24 mmol/L (22-30) 03/09/21 01:30 Anion Gap 16 mmol/L 03/09/21 01:30 BUN 14 mg/dL (9-20) 03/09/21 01:30 Creatinine 1.1 mg/dL (0.8-1.3) 03/09/21 01:30 Estimated GFR > 60 ml/min 03/09/21 01:30 BUN/Creatinine Ratio 13 % 03/09/21 01:30 Glucose 95 mg/dL (75-100) 03/09/21 05:18 Calcium 8.5 mg/dL (8.4-10.2) 03/09/21 01:30 Magnesium 1.90 mg/dL (1.7-2.3) 03/09/21 01:30 Ferritin 186.1 ng/mL (30.0-300.0) 03/09/21 05:18 Total Bilirubin 0.80 mg/dL (0.1-1.2) 03/09/21 01:30 AST 23 units/L (5-40) 03/09/21 01:30 ALT 14 units/L (7-56) 03/09/21 01:30 Alkaline Phosphatase 96 units/L (35-129) 03/09/21 01:30 Lactate Dehydrogenase 268 units/L (91-180) H 03/09/21 05:18 Troponin T < 0.010 ng/mL (0.00-0.029) 03/09/21 05:18 C-Reactive Protein 1.80 mg/dL (0.00-1.30) H 03/09/21 05:18 NT-Pro-B Natriuret Pep 2929 pg/mL (0-450) H 03/09/21 01:30 Total Protein 7.4 g/dL (6.3-8.2) 03/09/21 01:30 Albumin 4.0 g/dL (3.9-5) 03/09/21 01:30 Albumin/Globulin Ratio 1.2 % 03/09/21 01:30 Microbiology: Microbiology 03/09/21 01:51 Peripheral/Venous Blood Culture - Preliminary Culture in Progress 03/09/21 01:55 Peripheral/Venous Blood Culture - Preliminary Culture in Progress Active Medications - Current Medications Current Medications: Generic Name Dose Route Start Last Admin Trade Name Keny PRN Reason Stop Dose Admin Acetaminophen 650 mg 03/09/21 04:41 Acetaminophen 325 Mg Tab PO Q4H PRN Pain MILD(1-3)/Fever >100.5/SANDOVAL Albuterol 2.5 mg 03/09/21 04:41 03/09/21 05:53 Albuterol 2.5 Mg/3 Ml Nebu IH 2.5 mg Q4HRT PRN Administration Shortness Of Breath Albuterol/Ipratropium 1 ampul 03/09/21 08:00 Ipratropium/Albuterol Sulfate 3 Ml Ampul.Neb IH Q6HRT [facility] Cyclobenzaprine HCl 10 mg 03/09/21 04:45 Cyclobenzaprine 10 Mg Tab PO TID PRN Muscle Spasm Famotidine 20 mg 03/09/21 10:00 Famotidine 20 Mg Tab PO BID [facility] Heparin Sodium (Porcine) 5,000 unit 03/09/21 06:00 Heparin 5,000 Unit/1 Ml Vial SUB-Q Q8HR [facility] Hydrochlorothiazide 12.5 mg 03/09/21 10:00 Hydrochlorothiazide 12.5 Mg Cap PO QDAY [facility] Azithromycin 500 mg in 250 mls @ 250 mls/hr 03/10/21 06:00 Zithromax/Ns IV Q24H [facility] Protocol Cefepime HCl 1 gm in 100 mls @ 200 mls/hr 03/09/21 14:00 Cefepime/Ns 1 Gm/100 Ml IV Q8H [facility] Protocol Vancomycin HCl 1,500 mg/ 530 mls @ 333.333 mls/hr 03/09/21 17:00 Sodium Chloride IV Q12H [facility] Ondansetron HCl 4 mg 03/09/21 04:41 Ondansetron 4 Mg/2 Ml Inj IV Q8H PRN Nausea And Vomiting Sodium Chloride 10 ml 03/09/21 10:00 Sodium Chloride 0.9% 10 Ml Flush Syringe IV BID [facility] Sodium Chloride 10 ml 03/09/21 04:41 Sodium Chloride 0.9% 10 Ml Flush Syringe IV PRN PRN LINE FLUSH
[2021-03-09] MEDS: IPRATROPIUM/ALBUTEROL SULFATE 3 ML AMPUL.NEB IH SCH ×3 (09:03→23:02)
[2021-03-09] MEDS: HEPARIN 5,000 UNIT/1 ML VIAL SUB-Q SCH ×3 (09:38→21:21)
[2021-03-09] MEDS: FAMOTIDINE 20 MG TAB PO SCH ×2 (09:58→21:22)
[2021-03-09] MEDS: hydroCHLOROthiazide 12.5 MG CAP PO SCH (09:58)
--- NOTE | 2021-03-09 11:05 | Consultation ---
History of Present Illness - Reason for Consult Consult date: 03/09/21 - History of Present Illness 45-year-old male past medical history hypertension, CHF presented to hospital complaining of shortness of breath and cough. He began approximately 2 days prior to admission and associated with lightheadedness. He reports noncompliance with his medications due to lack of insurance. Otherwise denies of symptoms. Afebrile since admission with a white count 4.3. PCR pending. Normal procalc itonin. Normal renal function. Inflammatory markers fairly normal. Elevated BNP. Blood cultures no growth so far. Currently on cefepime and azithromycin. Currently on room air. Imaging personally reviewed: Chest CTA: No evidence of pulmonary medicine. Bilateral pulmonary opacities with extensive nodularity. Review of systems: Deferred to reduce to the risk of transmission of COVID-19 Past History Past Medical History: heart failure, hypertension Medications and Allergies Allergies Allergy/AdvReac Type Severity Reaction Status Date / Time No Known Allergies Allergy Verified 12/06/14 20:59 Home Medications Medication Instructions Recorded Confirmed Last Taken Type hydroCHLOROthiazide [HCTZ] 12.5 mg PO QDAY #30 capsule 12/07/14 Unknown Rx Cyclobenzaprine [Flexeril] 10 mg PO TID PRN #12 tablet 02/13/21 Unknown Rx Active Meds: Active Medications Acetaminophen (Acetaminophen 325 Mg Tab) 650 mg PO Q4H PRN PRN Reason: Pain MILD(1-3)/Fever >100.5/SANDOVAL Last Admin: 03/09/21 09:58 Dose: 650 mg Documented by: Albuterol (Albuterol 2.5 Mg/3 Ml Nebu) 2.5 mg IH Q4HRT PRN PRN Reason: Shortness Of Breath Last Admin: 03/09/21 05:53 Dose: 2.5 mg Documented by: Albuterol/Ipratropium (Ipratropium/Albuterol Sulfate 3 Ml Ampul.Neb) 1 ampul IH Q6HRT [facility] Last Admin: 03/09/21 09:03 Dose: 1 ampul Documented by: Cyclobenzaprine HCl (Cyclobenzaprine 10 Mg Tab) 10 mg PO TID PRN PRN Reason: Muscle Spasm Last Admin: 03/09/21 09:58 Dose: 10 mg Documented by: Famotidine (Famotidine 20 Mg Tab) 20 mg PO BID [facility] Last Admin: 03/09/21 09:58 Dose: 20 mg Documented by: Heparin Sodium (Porcine) (Heparin 5,000 Unit/1 Ml Vial) 5,000 unit SUB-Q Q8HR [facility] Last Admin: 03/09/21 09:38 Dose: Not Given Documented by: Hydrochlorothiazide (Hydrochlorothiazide 12.5 Mg Cap) 12.5 mg PO QDAY [facility] Last Admin: 03/09/21 09:58 Dose: 12.5 mg Documented by: Azithromycin (Zithromax/Ns) 500 mg in 250 mls @ 250 mls/hr IV Q24H [facility]; Protocol Cefepime HCl (Cefepime/Ns 1 Gm/100 Ml) 1 gm in 100 mls @ 200 mls/hr IV Q8H [facility]; Protocol Vancomycin HCl 1,500 mg/ (Sodium Chloride) 530 mls @ 333.333 mls/hr IV Q12H [facility] Ketorolac Tromethamine (Ketorolac 30 Mg/1 Ml Inj) 15 mg IV Q8H PRN PRN Reason: Pain, Moderate (4-6) Stop: 03/14/21 10:02 Ondansetron HCl (Ondansetron 4 Mg/2 Ml Inj) 4 mg IV Q8H PRN PRN Reason: Nausea And Vomiting Sodium Chloride (Sodium Chloride 0.9% 10 Ml Flush Syringe) 10 ml IV BID [facility] Last Admin: 03/09/21 09:59 Dose: 10 ml Documented by: Sodium Chloride (Sodium Chloride 0.9% 10 Ml Flush Syringe) 10 ml IV PRN PRN PRN Reason: LINE FLUSH Physical Examination - Physical Exam Narrative exam: Physical exam deferred to reduce risk of transmission of COVID-19. Please refer to primary team's note. - Constitutional Vitals: Vital Signs Temp Pulse Resp BP Pulse Ox 99 F 92 H 20 161/110 96 03/09/21 00:52 03/09/21 09:03 03/09/21 09:03 03/09/21 07:00 03/09/21 10:33 Temperature -Last 24 Hours Temperature 99 F Results - Labs CBC & Chem 7: 03/09/21 01:30 03/09/21 05:18 Labs: Abnormal lab results 03/09/21 03/09/21 03/09/21 Range/Units 01:30 01:30 01:30 WBC 4.3 L (4.5-11.0) K/mm3 Hgb 15.7 H (11.8-15.2) gm/dl Hct 45.9 H (35.5-45.6) % MCV 98 H (84-94) fl MCH 34 H (28-32) pg [place] % (Auto) 12.2 H (0.0-7.3) % Lymph # (Auto) 1.1 L (1.2-5.4) K/mm3 D-Dimer (0-234) ng/mlDDU Glucose 109 H (75-100) mg/dL Lactate Dehydrogenase (91-180) units/L C-Reactive Protein (0.00-1.30) mg/dL NT-Pro-B Natriuret Pep 2929 H (0-450) pg/mL 03/09/21 03/09/21 Range/Units 05:18 05:18 WBC (4.5-11.0) K/mm3 Hgb (11.8-15.2) gm/dl Hct (35.5-45.6) % MCV (84-94) fl MCH (28-32) pg [place] % (Auto) (0.0-7.3) % Lymph # (Auto) (1.2-5.4) K/mm3 D-Dimer 415.01 H (0-234) ng/mlDDU Glucose (75-100) mg/dL Lactate Dehydrogenase 268 H (91-180) units/L C-Reactive Protein 1.80 H (0.00-1.30) mg/dL NT-Pro-B Natriuret Pep (0-450) pg/mL Assessment and Plan Cultures: Blood culture no growth so far Covid PCR: Pending A/P: 45-year-old man past medical history CHF, hypertension admitted as Covid PUI. #Covid PUI: Await PCR testing. #Multifocal pneumonia: With extensive nodularity, we will test for Covid first and if negative will start broader investigation at that time. #CHF Recs: -Follow-up Covid PCR. If positive and hypoxic start dexamethasone and remdesivir. -Ordered Fungitell -Ordered urinary histoplasma -Stopped empiric antibiotics given normal white count and normal procalcitonin. Thank you for the consult, we will continue to follow. MD Madeleine Parks [facility] O: [phone] F: [phone]
[2021-03-09] MEDS: KETOROLAC 30 MG/1 ML INJ IV PRN ×2 (12:00→19:40)
[2021-03-09] MEDS ORDERED: CEFEPIME/NS 1 GM/100 ML 1 GM/100 ML BAG IV SCH (14:00)
[2021-03-09] MEDS: VANCOMYCIN 1,500 MG in SODIUM CHLORIDE 0.9% 500 ML 500 ML IV SCH (18:52)
[2021-03-09] MEDS ORDERED: guaiFENesin/CODEINE 100-10MG ORAL LIQD 5 ML PO PRN (19:43)
[2021-03-10] MEDS: IPRATROPIUM/ALBUTEROL SULFATE 3 ML AMPUL.NEB IH SCH ×3 (02:45→14:44)
[2021-03-10] MEDS: HEPARIN 5,000 UNIT/1 ML VIAL SUB-Q SCH (05:43)
[2021-03-10] MEDS: VANCOMYCIN 1,500 MG in SODIUM CHLORIDE 0.9% 500 ML 500 ML IV SCH (05:43)
[2021-03-10 05:53] LABS: Basophils # (Auto) 0.1 K/mm3 (0.0-0.1); Basophils % (Auto) 1.3 % (0.0-1.8); Eosinophils % (Auto) 0.5 % (0.0-4.3); Hematocrit 43.1 % (35.5-45.6); Hemoglobin 14.9 gm/dl (11.8-15.2); Lymphocytes # (Auto) 1.4 K/mm3 (1.2-5.4); Lymphocytes % (Auto) 34.9 % (13.4-35.0); Mean Corpuscular HGB Conc 35 % (32-34); Mean Corpuscular Volume 98 fl (84-94); Monocytes # (Auto) 0.4 K/mm3 (0.0-0.8); Monocytes % (Auto) 9.4 % (0.0-7.3); Platelet Count 165 K/mm3 (140-440); Red Blood Count 4.39 M/mm3 (3.65-5.03)
[2021-03-10] MEDS ORDERED: AZITHROMYCIN/NS 500 MG/250 ML 500 MG/250 ML BAG IV SCH (06:00)
[2021-03-10 06:07] LABS: BUN/Creatinine Ratio 12; Blood Urea Nitrogen 12 mg/dL (9-20); Hemolysis Index 6
[2021-03-10] MEDS: FAMOTIDINE 20 MG TAB PO SCH (09:46)
[2021-03-10] MEDS: hydroCHLOROthiazide 12.5 MG CAP PO SCH (09:46)
[2021-03-10] MEDS ORDERED: LIP THERAPY VASELINE TP PRN (11:00)
--- NOTE | 2021-03-10 11:29 | Progress Note ---
Assessment and Plan Assessment and plan: #1 Multifocal Pneumonia Admit the patient to the medical telemetry. Oxygen by nasal cannula 3 L/min, now off on room air. DuoNeb by nebulizer every 4 hours. CTA Chest: multifocal pneuonia noted, extensive LN. Blood culture, sputum culture consult infectious disease consult pulmonology Cefepime 1 g IV every 8 hours, Zithromax 500 mg IV daily, vancomycin 1 g IV every 12 hours ordered on admission. 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 Patient also has a significant smoking history Noted on CTA chest. ?sarcoidosis. Consult pulmonology to evaluate. #3 Hypertension Hydrochlorothiazide 12.5 mg p.o. daily. We will monitor the blood pressure closely #4 Back Pain Flexeril, Tylenol, Toradol as needed. #5 CHF (congestive heart failure) Status: Acute Plan to address problem: Stable. Fluid restriction. We will continue the home medication. We will monitor the patient closely #6 History of nicotine abuse Smokes 2 pack/day for several years Denies history of COPD or asthma #2 Covid PUI Patient is unvaccinated Covid RT-PCR negative #7 DVT prophylaxis Heparin 5000 units subcu every 8 hours for DVT prophylaxis. CODE STATUS: Full code Dispo: Negative Covid RT-PCR. Will follow for clinical improvement. Consult pulmonology for evaluation, will follow recommendations History Interval history: 03/10/2021: Patient has no acute complaints this morning. Saturating well on room air. States that his lower back pain was relieved with Toradol. We discussed getting evaluation with pulmonology due to the nature of his pneumonia and extensive lymphadenopathy demonstrated by CT chest. 03/09/2021: Patient this morning only had complaint of lumbar muscle spasms. He states that Flexeril given overnight was not helpful. He was on room air on my encounter, saturating 95%. He was not in respiratory distress. He states that he believes he acquired illness from his and child. He states he has not obtained the Covid vaccine. He does not know of anyone around him that had tested positive for Covid. Remainder of ROS negative except for stated above. Hospitalist Physical - Physical exam Narrative exam: Physical Exam: GENERAL APPEARANCE: Well developed, well nourished, alert and cooperative. In mild distress from back pain HEAD: normocephalic. EYES: PERRL, EOMI. Vision is grossly intact. EARS: No gross deformities NOSE: No nasal discharge. THROAT: Oral cavity and pharynx normal. No inflammation, swelling, exudate, or lesions. Teeth and gingiva in good general condition. NECK: Neck supple, non-tender without lymphadenopathy, masses or thyromegaly. CARDIAC: Normal S1 and S2. No S3, S4 or murmurs. Rhythm is regular. There is no peripheral edema, cyanosis or pallor. Extremities are warm and well perfused. Capillary refill is less than 2 seconds. No carotid bruits. LUNGS: Clear to auscultation and percussion without rales, rhonchi, wheezing or diminished breath sounds. ABDOMEN: Positive bowel sounds. Soft, nondistended, nontender. No guarding or rebound. No masses. MUSKULOSKELETAL: Adequately aligned spine. ROM intact spine and extremities. . BACK: Examination of the spine reveals normal gait and posture. Tenderness parallel to lumbar spine and iliopsoas region. EXTREMITIES: No significant deformity or joint abnormality. No edema. Peripheral pulses intact. No varicosities. NEUROLOGICAL: CN II-XII intact. Strength and sensation symmetric and intact throughout. Reflexes 2+ throughout. PSYCHIATRIC: The mental examination revealed the patient was oriented to person, place, and time. - Constitutional Vitals: Temp Pulse Resp BP Pulse Ox 98.0 F 85 19 134/96 93 03/10/21 04:34 03/10/21 09:09 03/10/21 09:09 03/10/21 04:34 03/10/21 09:06 General appearance: Present: no acute distress, well-nourished HEART Score - HEART Score Troponin: Troponin T < 0.010 ng/mL (0.00-0.029) 03/09/21 10:49 Results - Labs CBC & Chem 7: 03/10/21 05:03 03/10/21 05:03 Labs: Laboratory Last Values WBC 3.9 K/mm3 (4.5-11.0) L 03/10/21 05:03 RBC 4.39 M/mm3 (3.65-5.03) 03/10/21 05:03 Hgb 14.9 gm/dl (11.8-15.2) 03/10/21 05:03 Hct 43.1 % (35.5-45.6) 03/10/21 05:03 MCV 98 fl (84-94) H 03/10/21 05:03 MCH 34 pg (28-32) H 03/10/21 05:03 MCHC 35 % (32-34) H 03/10/21 05:03 RDW 14.0 % (13.2-15.2) 03/10/21 05:03 Plt Count 165 K/mm3 (140-440) 03/10/21 05:03 Lymph % (Auto) 34.9 % (13.4-35.0) 03/10/21 05:03 Brule % (Auto) 9.4 % (0.0-7.3) H 03/10/21 05:03 Eos % (Auto) 0.5 % (0.0-4.3) 03/10/21 05:03 Baso % (Auto) 1.3 % (0.0-1.8) 03/10/21 05:03 Lymph # (Auto) 1.4 K/mm3 (1.2-5.4) 03/10/21 05:03 Brule # (Auto) 0.4 K/mm3 (0.0-0.8) 03/10/21 05:03 Eos # (Auto) 0.0 K/mm3 (0.0-0.4) 03/10/21 05:03 Baso # (Auto) 0.1 K/mm3 (0.0-0.1) 03/10/21 05:03 Seg Neutrophils % 53.9 % (40.0-70.0) 03/10/21 05:03 Seg Neutrophils # 2.1 K/mm3 (1.8-7.7) 03/10/21 05:03 D-Dimer 415.01 ng/mlDDU (0-234) H 03/09/21 05:18 Sodium 136 mmol/L (137-145) L 03/10/21 05:03 Potassium 3.3 mmol/L (3.6-5.0) L 03/10/21 05:03 Chloride 100.5 mmol/L (98-107) 03/10/21 05:03 Carbon Dioxide 22 mmol/L (22-30) 03/10/21 05:03 Anion Gap 17 mmol/L 03/10/21 05:03 BUN 12 mg/dL (9-20) 03/10/21 05:03 Creatinine 1.0 mg/dL (0.8-1.3) 03/10/21 05:03 Estimated GFR > 60 ml/min 03/10/21 05:03 BUN/Creatinine Ratio 12 % 03/10/21 05:03 Glucose 106 mg/dL (75-100) H 03/10/21 05:03 Calcium 8.0 mg/dL (8.4-10.2) L 03/10/21 05:03 Magnesium 1.90 mg/dL (1.7-2.3) 03/09/21 01:30 Ferritin 186.1 ng/mL (30.0-300.0) 03/09/21 05:18 Total Bilirubin 0.80 mg/dL (0.1-1.2) 03/09/21 01:30 AST 23 units/L (5-40) 03/09/21 01:30 ALT 14 units/L (7-56) 03/09/21 01:30 Alkaline Phosphatase 96 units/L (35-129) 03/09/21 01:30 Lactate Dehydrogenase 268 units/L (91-180) H 03/09/21 05:18 Troponin T < 0.010 ng/mL (0.00-0.029) 03/09/21 10:49 C-Reactive Protein 1.80 mg/dL (0.00-1.30) H 03/09/21 05:18 NT-Pro-B Natriuret Pep 2929 pg/mL (0-450) H 03/09/21 01:30 Total Protein 7.4 g/dL (6.3-8.2) 03/09/21 01:30 Albumin 4.0 g/dL (3.9-5) 03/09/21 01:30 Albumin/Globulin Ratio 1.2 % 03/09/21 01:30 Procalcitonin < 0.05 ng/mL (<0.15) 03/09/21 05:18 Coronavirus (PCR) Negative (Negative) 03/09/21 10:08 Microbiology: Microbiology 03/09/21 01:51 Peripheral/Venous Blood Culture - Preliminary NO GROWTH AFTER 24 HOURS 03/09/21 01:55 Peripheral/Venous Blood Culture - Preliminary NO GROWTH AFTER 24 HOURS Jessica/IV: Voiding Method Urinal Active Medications - Current Medications Current Medications: Generic Name Dose Route Start Last Admin Trade Name Freq PRN Reason Stop Dose Admin Acetaminophen 650 mg 03/09/21 04:41 03/09/21 09:58 Acetaminophen 325 Mg Tab PO 650 mg Q4H PRN Administration Pain MILD(1-3)/Fever >100.5/SANDOVAL Albuterol 2.5 mg 03/09/21 04:41 03/09/21 05:53 Albuterol 2.5 Mg/3 Ml Nebu IH 2.5 mg Q4HRT PRN Administration Shortness Of Breath Albuterol/Ipratropium 1 ampul 03/09/21 08:00 03/10/21 09:06 Ipratropium/Albuterol Sulfate 3 Ml Ampul.Neb IH 1 ampul Q6HRT COLLIN Administration Cyclobenzaprine HCl 10 mg 03/09/21 04:45 03/09/21 09:58 Cyclobenzaprine 10 Mg Tab PO 10 mg TID PRN Administration Muscle Spasm Famotidine 20 mg 03/09/21 10:00 03/10/21 09:46 Famotidine 20 Mg Tab PO 20 mg BID COLLIN Administration Heparin Sodium (Porcine) 5,000 unit 03/09/21 06:00 03/10/21 05:43 Heparin 5,000 Unit/1 Ml Vial SUB-Q 5,000 unit Q8HR COLLIN Administration Hydrochlorothiazide 12.5 mg 03/09/21 10:00 03/10/21 09:46 Hydrochlorothiazide 12.5 Mg Cap PO 12.5 mg QDAY COLLIN Administration Hydrophilic Ointment 1 applic 03/10/21 11:00 Lip Therapy Vaseline TP DIRECT PRN Dry Lips Ketorolac Tromethamine 15 mg 03/09/21 10:03 03/09/21 19:40 Ketorolac 30 Mg/1 Ml Inj IV 03/14/21 10:02 15 mg Q8H PRN Administration Pain, Moderate (4-6) Ondansetron HCl 4 mg 03/09/21 04:41 Ondansetron 4 Mg/2 Ml Inj IV Q8H PRN Nausea And Vomiting Pseudoephedrine/Acetam/Chlorphenir 10 ml 03/09/21 19:43 03/09/21 21:22 Guaifenesin/Codeine 100-10mg Oral Liqd 5 Ml PO 10 ml Q6HR PRN Administration Cough Sodium Chloride 10 ml 03/09/21 10:00 03/10/21 09:46 Sodium Chloride 0.9% 10 Ml Flush Syringe IV 10 ml BID COLLIN Administration Sodium Chloride 10 ml 03/09/21 04:41 Sodium Chloride 0.9% 10 Ml Flush Syringe IV PRN PRN LINE FLUSH
--- NOTE | 2021-03-10 12:20 | Event Note ---
Date: 03/10/[address] of chest. Agree with radiology differential. Clinically patient is stable. Work up for all things in the differential would be outpatient. No objection pulm navarro to discharge and follow up as outpatient.
--- NOTE | 2021-03-10 13:43 | Progress Note ---
Assessment and Plan Cultures: Blood culture 03/09/2021 no growth so far Covid PCR: negative A/P: 45-year-old man past medical history CHF, hypertension admitted as Covid PUI. # #Multifocal pneumonia: With extensive nodularity, groung glass opocities and med iastinal LNs. Not hypoxic #CHF Recs: -Check aspergillus, CRP, procal, and -Ordered Fungitell -Ordered urinary histoplasma -Stopped empiric antibiotics given normal white count and normal procalcitonin. Objective - Constitutional Vitals: Vital Signs Temp Pulse Resp BP Pulse Ox 98.0 F 85 19 134/96 93 03/10/21 04:34 03/10/21 09:09 03/10/21 09:09 03/10/21 04:34 03/10/21 09:06 Temperature -Last 24 Hours Temperature 98.0 F Temperature 98.3 F - Labs CBC & Chem 7: 03/10/21 05:03 03/10/21 05:03 Labs: Abnormal lab results 03/10/21 03/10/21 Range/Units 05:03 05:03 WBC 3.9 L (4.5-11.0) K/mm3 MCV 98 H (84-94) fl MCH 34 H (28-32) pg MCHC 35 H (32-34) % Mchenry % (Auto) 9.4 H (0.0-7.3) % Sodium 136 L (137-145) mmol/L Potassium 3.3 L (3.6-5.0) mmol/L Glucose 106 H (75-100) mg/dL Calcium 8.0 L (8.4-10.2) mg/dL
--- NOTE | 2021-03-10 13:54 | Discharge Summary ---
Providers - Providers Date of Admission: 03/09/21 06:33 Date of discharge: 03/10/21 Attending physician: FRANK GASTELUM MD 03/09/21 03:43 Consult to Physician [CONS] Routine Comment: Consulting Provider: ADDIE SANTANA Physician Instructions: Reason For Exam: atypical pneumonia 03/10/21 09:57 Consult to Physician [CONS] Routine Comment: Consulting Provider: TJ MELENDEZ Physician Instructions: Reason For Exam: CT findings, lung nodularity, multifocal pna Primary care physician: KITCHENHAND Hospitalization Reason for admission: Multifocal Pneumonia Condition: Fair Hospital course: #1 Multifocal Pneumonia Admit the patient to the medical telemetry. Oxygen by nasal cannula 3 L/min, now off on room air. DuoNeb by nebulizer every 4 hours. CTA Chest: multifocal pneuonia noted, extensive LN. Blood culture, sputum culture consult infectious disease consult pulmonology Cefepime 1 g IV every 8 hours, Zithromax 500 mg IV daily, vancomycin 1 g IV every 12 hours ordered on admission. 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 Patient also has a significant smoking history Noted on CTA chest. ?sarcoidosis. Consult pulmonology to evaluate. #3 Hypertension Hydrochlorothiazide 12.5 mg p.o. daily. We will monitor the blood pressure closely #4 Back Pain Flexeril, Tylenol, Toradol as needed. #5 CHF (congestive heart failure) Status: Acute Plan to address problem: Stable. Fluid restriction. We will continue the home medication. We will monitor the patient closely #6 History of nicotine abuse Smokes 2 pack/day for several years Denies history of COPD or asthma #2 Covid PUI Patient is unvaccinated Covid RT-PCR negative #7 DVT prophylaxis Heparin 5000 units subcu every 8 hours for DVT prophylaxis. CODE STATUS: Full code Dispo: Negative Covid RT-PCR. Will follow for clinical improvement. Consult pulmonology for evaluation, will follow recommendations History Interval history: 03/10/2021: Patient has no acute complaints this morning. Saturating well on room air. States that his lower back pain was relieved with Toradol. We discussed getting evaluation with pulmonology due to the nature of his pneumonia and extensive lymphadenopathy demonstrated by CT chest. Patient was evaluated by pulmonology. They recommended outpatient work-up with chest CT. Patient will be discharged today. Amoxicillin 10-day course written. 03/09/2021: Patient this morning only had complaint of lumbar muscle spasms. He states that Flexeril given overnight was not helpful. He was on room air on my encounter, saturating 95%. He was not in respiratory distress. He states that he believes he acquired illness from his and child. He states he has not obtained the Covid vaccine. He does not know of anyone around him that had tested positive for Covid. Remainder of ROS negative except for stated above. Disposition: DC-01 TO HOME OR SELFCARE Final Discharge Diagnosis (Prints w/discharge instructions): Multifocal pneumonia, lymphadenopathy Time spent for discharge: 55 minutes Core Measure Documentation - Palliative Care Palliative Care/ Comfort Measures: Not Applicable - Core Measures Any of the following diagnoses?: none Exam - Physical Exam Narrative exam: Physical Exam: GENERAL APPEARANCE: Well developed, well nourished, alert and cooperative. In mild distress from back pain HEAD: normocephalic. EYES: PERRL, EOMI. Vision is grossly intact. EARS: No gross deformities NOSE: No nasal discharge. THROAT: Oral cavity and pharynx normal. No inflammation, swelling, exudate, or lesions. Teeth and gingiva in good general condition. NECK: Neck supple, non-tender without lymphadenopathy, masses or thyromegaly. CARDIAC: Normal S1 and S2. No S3, S4 or murmurs. Rhythm is regular. There is no peripheral edema, cyanosis or pallor. Extremities are warm and well perfused. Capillary refill is less than 2 seconds. No carotid bruits. LUNGS: Clear to auscultation and percussion without rales, rhonchi, wheezing or diminished breath sounds. ABDOMEN: Positive bowel sounds. Soft, nondistended, nontender. No guarding or rebound. No masses. MUSKULOSKELETAL: Adequately aligned spine. ROM intact spine and extremities. . BACK: Examination of the spine reveals normal gait and posture. Tenderness parallel to lumbar spine and iliopsoas region. EXTREMITIES: No significant deformity or joint abnormality. No edema. Peripheral pulses intact. No varicosities. NEUROLOGICAL: CN II-XII intact. Strength and sensation symmetric and intact throughout. Reflexes 2+ throughout. PSYCHIATRIC: The mental examination revealed the patient was oriented to person, place, and time. - Constitutional Vitals: Temp Pulse Resp BP Pulse Ox 98.0 F 85 19 134/96 93 03/10/21 04:34 03/10/21 09:09 03/10/21 09:09 03/10/21 04:34 03/10/21 09:06 Plan Plan of Treatment: Ricki Dubon. You were admitted for multifocal pneumonia this hospitalization. You are very short of breath on admission however we treated you with IV antibiotics and you improved. You underwent testing for Covid pneumonia. Your test was negative. A CTA of your chest was completed and it demonstrated pneumonia in both of your lungs as well as extensive lymphadenopathy. We consulted an infectious disease doctor and a drum worker who evaluated you this hospital admission. The plan is for you to go home today with a prescription for amoxicillin 875 mg by mouth twice a day for total of 10 days. Please finish this prescription.. Please follow-up with your primary care doctor in 3 to 5 days. Please follow-up with a drum worker in [address] Tj Melendez saw you here in the hospital his information is below. Pulmonology Dr. Tj Melendez Address: [address], [place] [address] Follow up with: PRIMARY CAREMD [Primary Care Provider] - 7 Days Prescriptions: Amoxicillin [Amoxicillin TAB] 875 mg PO BID 10 Days #20 tablet
[2021-03-10 14:49] VITALS: BP 127/81
--- NOTE | 2021-03-11 09:13 | Electrocardiograph Report ---
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
--- NOTE | 2021-03-11 10:19 | Electrocardiograph Report ---
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
[2021-03-13 00:44] LABS: ANA Screen, IFA Negative (Negative)
== END 2021-03-10 14:30 | disposition home or self-care (01) | DRG 195 ==
LOC: ED 00:46 → SUATTDRO 00:46 → 3A 06:33
PROVIDERS: ADMIT Hospitalist; ATTEND Internal Medicine
DX: J18.9 Pneumonia, unspecified organism (principal); I11.0 Hypertensive heart disease with heart failure; I50.9 Heart failure, unspecified; Z20.822 Contact with and (suspected) exposure to COVID-19; E86.0 Dehydration; F17.210 Nicotine dependence, cigarettes, uncomplicated; R59.1 Generalized enlarged lymph nodes; M54.5 Low back pain
CPT/HCPCS: 36415; 71046; 71275; 74177; 80048; 80053; 82728; 82947; 83615; 83735; 83880; 84145; 84484; 85025; 85379; 86038; 86140; 87040; 93005; 94640; 94644; G0378; J0456; J0692; J1644; J1885; J3370; J7030; J7040; Q9967; U0003

== ENCOUNTER 2021-07-01 22:11 | Emergency (ER) | payer BC ==
[2021-07-01 22:25] VITALS: BP 137/93
--- NOTE | 2021-07-01 23:13 | XRay Report ---
CHEST 2 VIEWS INDICATION / CLINICAL INFORMATION: Chest Pain; SOB X 2 DAYS. COMPARISON: 03/09/21 FINDINGS: SUPPORT DEVICES: None. HEART / MEDIASTINUM: Mildly enlarged but stable. LUNGS / PLEURA: Borderline interstitial edema which is less pronounced than on the prior study. No pn eumothorax. ADDITIONAL FINDINGS: No significant additional findings. IMPRESSION: 1. Mild cardiomegaly with mild pulmonary edema. Signer Name: Justin Long MD Signed: 07/01/2021 11:09 PM Workstation Name: [id number]
--- NOTE | 2021-07-01 23:25 | Emergency Department Report ---
ED Chest Pain HPI - General Chief Complaint: Chest Pain Stated Complaint: CHEST PAIN/SOB Time Seen by Provider: 07/01/21 23:05 Source: patient Mode of arrival: Ambulatory Limitations: No Limitations - History of Present Illness Initial Comments: 45-year-old -[place] male presents to the emergency department complaint of a 2-day history of some midsternal to left-sided chest discomfort, mixed dry and productive cough with occasional blood-tinged sputum, and some shortness of breath. He has a past medical history of hypertension and CHF. He is a former tobacco smoker and still occasionally will smoke cigars. He took a low-dose aspirin for his symptoms without much relief. His symptoms worsen with exertion. He denies any orthopnea. He denies any fever, back pain, lower extremity swelling, abdominal pain, nausea, vomiting or diaphoresis. He does not have a primary care physician or multi share program coordinator at this time. No recent travel or sick contacts at home. - Related Data Previous Rx's Medication Instructions Recorded Last Taken Type hydroCHLOROthiazide [HCTZ] 12.5 mg PO QDAY #30 capsule 12/07/14 03/06/21 Rx Amoxicillin [Amoxicillin TAB] 875 mg PO BID 10 Days #20 tablet 03/10/21 Unknown Rx Ipratropium/Albuterol Sulfate 1 ampul IH Q6HRT ampul.neb 03/10/21 Unknown Rx [DUONEB *Not for PRN Use*] ALBUTEROL NEB's [Proventil 0.083% 2.5 mg IH TID PRN #1 box 07/02/21 Unknown Rx NEBS] Albuterol Mdi (or & Nicu Only) 2 puff IH QID PRN #8.5 gram 07/02/21 Unknown Rx [ProAir HFA Inhaler] Furosemide [Lasix] 20 mg PO QDAY #5 tablet 07/02/21 Unknown Rx Allergies Allergy/AdvReac Type Severity Reaction Status Date / Time No Known Allergies Allergy Verified 12/06/14 20:59 Heart Score - HEART Score History: Slightly suspicious EKG: Non-specific Age: < 45 Risk factors: 1-2 risk factors Troponin: < normal limit HEART Score: 2 - EKG Read Time Time EKG Completed: 22:28 EKG Read Time: 22:34 ED Review of Systems ROS: Stated complaint: CHEST PAIN/SOB Other details as noted in HPI Comment: All other systems reviewed and negative Constitutional: denies: chills, fever Eyes: denies: eye pain, vision change ENT: denies: ear pain, throat pain Respiratory: cough, shortness of breath Cardiovascular: chest pain. denies: edema Gastrointestinal: denies: abdominal pain, vomiting Genitourinary: denies: dysuria, discharge Musculoskeletal: denies: back pain, arthralgia Skin: denies: rash, lesions Neurological: denies: headache, weakness ED Past Medical Hx - Past Medical History Hx Hypertension: Yes Hx Congestive Heart Failure: Yes Hx Diabetes: No Hx Asthma: No Hx COPD: No Hx HIV: No - Surgical History Past Surgical History?: No - Social History Smoking Status: Never Smoker Substance Use Type: None - Medications Home Medications: Home Medications Medication Instructions Recorded Confirmed Last Taken Type hydroCHLOROthiazide [HCTZ] 12.5 mg PO QDAY #30 capsule 12/07/14 03/10/21 03/06/21 Rx Amoxicillin [Amoxicillin TAB] 875 mg PO BID 10 Days #20 tablet 03/10/21 Unknown Rx Ipratropium/Albuterol Sulfate 1 ampul IH Q6HRT ampul.neb 03/10/21 Unknown Rx [DUONEB *Not for PRN Use*] ALBUTEROL NEB's [Proventil 0.083% 2.5 mg IH TID PRN #1 box 07/02/21 Unknown Rx NEBS] Albuterol Mdi (or & Nicu Only) 2 puff IH QID PRN #8.5 gram 07/02/21 Unknown Rx [ProAir HFA Inhaler] Furosemide [Lasix] 20 mg PO QDAY #5 tablet 07/02/21 Unknown Rx ED Physical Exam - General Limitations: No Limitations - Other Other exam information: GENERAL: The patient is well-developed well-nourished. HENT: Normocephalic. Atraumatic. Patient has moist mucous membranes. EYES: Extraocular motions are intact. NECK: Supple. Trachea is midline. CHEST/LUNGS: Slightly coarse breath sounds. No tachypnea or accessory muscle use. HEART/CARDIOVASCULAR: Regular. There is no tachycardia. There is no murmur. ABDOMEN: Abdomen is soft, nontender. Patient has normal bowel sounds. SKIN: Skin is warm and dry. No edema of the lower extremities. NEURO: The patient is awake, alert, and oriented. The patient is cooperative. The patient has no focal neurologic deficits. Normal speech. MUSCULOSKELETAL: There is no tenderness or deformity. ED Course Vital Signs 07/01/21 22:23 Temperature 98.2 F Pulse Rate 95 H Respiratory 18 Rate Blood Pressure 137/93 [Left] O2 Sat by Pulse 97 Oximetry MARCE score - Marce Score Age > 65: (0) No Aspirin use within the Past 7 Days: (0) No 3 or more CAD Risk Factors: (0) No 2 or more Angina events in past 24 hrs: (1) Yes Known CAD with more than 50% Stenosis: (0) No Elevated Cardiac Markers: (0) No ST Deviation Greater than 0.5mm: (0) No MARCE Score: 1 ED Medical Decision Making - Lab Data Result diagrams: 07/01/21 22:52 07/01/21 22:52 Lab Results 07/01/21 07/01/21 07/01/21 Range/Units 22:52 22:52 23:20 WBC 6.0 (4.5-11.0) K/mm3 RBC 4.51 (3.65-5.03) M/mm3 Hgb 14.9 (11.8-15.2) gm/dl Hct 45.4 (35.5-45.6) % MCV 101 H (84-94) fl MCH 33 H (28-32) pg MCHC 33 (32-34) % RDW 15.0 (13.2-15.2) % Plt Count 188 (140-440) K/mm3 Lymph % (Auto) 40.1 H (13.4-35.0) % [place] % (Auto) 7.1 (0.0-7.3) % Eos % (Auto) 3.4 (0.0-4.3) % Baso % (Auto) 0.9 (0.0-1.8) % Lymph # (Auto) 2.4 (1.2-5.4) K/mm3 [place] # (Auto) 0.4 (0.0-0.8) K/mm3 Eos # (Auto) 0.2 (0.0-0.4) K/mm3 Baso # (Auto) 0.1 (0.0-0.1) K/mm3 Seg Neutrophils % 48.5 (40.0-70.0) % Seg Neutrophils # 2.9 (1.8-7.7) K/mm3 Sodium 143 (137-145) mmol/L Potassium 4.1 (3.6-5.0) mmol/L Chloride 105.6 (98-107) mmol/L Carbon Dioxide 26 (22-30) mmol/L Anion Gap 16 mmol/L BUN 19 (9-20) mg/dL Creatinine 1.4 H (0.8-1.3) mg/dL Estimated GFR > 60 ml/min BUN/Creatinine Ratio 14 % Glucose 92 (75-100) mg/dL Calcium 9.0 (8.4-10.2) mg/dL Troponin T < 0.010 (0.00-0.029) ng/mL NT-Pro-B Natriuret Pep 4184 H (0-450) pg/mL 07/02/21 Range/Units 01:26 WBC (4.5-11.0) K/mm3 RBC (3.65-5.03) M/mm3 Hgb (11.8-15.2) gm/dl Hct (35.5-45.6) % MCV (84-94) fl MCH (28-32) pg MCHC (32-34) % RDW (13.2-15.2) % Plt Count (140-440) K/mm3 Lymph % (Auto) (13.4-35.0) % [place] % (Auto) (0.0-7.3) % Eos % (Auto) (0.0-4.3) % Baso % (Auto) (0.0-1.8) % Lymph # (Auto) (1.2-5.4) K/mm3 [place] # (Auto) (0.0-0.8) K/mm3 Eos # (Auto) (0.0-0.4) K/mm3 Baso # (Auto) (0.0-0.1) K/mm3 Seg Neutrophils % (40.0-70.0) % Seg Neutrophils # (1.8-7.7) K/mm3 Sodium (137-145) mmol/L Potassium (3.6-5.0) mmol/L Chloride (98-107) mmol/L Carbon Dioxide (22-30) mmol/L Anion Gap mmol/L BUN (9-20) mg/dL Creatinine (0.8-1.3) mg/dL Estimated GFR ml/min BUN/Creatinine Ratio % Glucose (75-100) mg/dL Calcium (8.4-10.2) mg/dL Troponin T < 0.010 (0.00-0.029) ng/mL NT-Pro-B Natriuret Pep (0-450) pg/mL - EKG Data -: EKG Interpreted by Me EKG shows normal: sinus rhythm (PACs), axis (Left axis deviation), intervals (Slightly prolonged MO interval), QRS complexes (Q waves to the septal and inferior leads), ST-T waves (T wave inversions to the lateral leads V5 and V6 with mild ST depression) Rate: normal - EKG Data When compared to previous EKG there are: no significant change Interpretation: unchanged when compared t (03/10/21) - Radiology Data Radiology results: image reviewed interpreted by me: Chest x-ray shows some mild cardiomegaly and mild interstitial edema. No obvious pneumonia. No pneumothorax. No widened mediastinum. - Medical Decision Making This patient presents with a 2-day history of some shortness of breath, chest discomfort, and a productive cough. On examination he does not have any peripheral edema. Heart sounds are normal to auscultation. Lung sounds show some mild coarse breath sounds. No tachypnea or accessory muscle use. The patient does not appear in any respiratory or acute distress. EKG does not have any morphology consistent with ST elevation myocardial infarction and is unchanged from previous. Chest x-ray shows some mild cardiomegaly, mild interstitial edema, but otherwise no acute process. Patient's labs have been mostly unremarkable including CBC, metabolic panel and negative troponins x2. The patient does have an elevated proBNP of about 4000 consistent with his history of CHF. The patient was reevaluated multiple times over multiple hours and each time is seen sleeping and/or resting comfortably. Vital signs have been reassuring including being afebrile. There has been no hypoxia. The patient was given a dose of Lasix to start diuresis. He is low on the heart and MARCE score. He is low on the Wells score criteria and negative on the pulmonary embolism rule out criteria. He does not appear to require a medical admission at this time. His contact information has been sent over to the [facility], and someone from their office should be contacting him shortly for close outpatient follow-up as part of our [facility] low risk chest pain protocol. The patient was given a prescription for a few days of Lasix for continued diuresis. He will return to the emergency department with any worsening of his symptoms or with any acute distress. Critical Care Time: No Critical care attestation.: If time is entered above; I have spent that time in minutes in the direct care of this critically ill patient, excluding procedure time. ED Disposition Clinical Impression: Atypical chest pain CHF (congestive heart failure) Qualifiers: Heart failure type: unspecified Heart failure chronicity: acute on chronic Qualified Code(s): I50.9 - Heart failure, unspecified Disposition: HOME / SELF CARE / HOMELESS Is pt being admited?: No Condition: Stable Instructions: Heart Failure, Self Care, Nonspecific Chest Pain, Adult, Heart Failure Exacerbation Additional Instructions: Please follow-up with your primary care physician in the next few days. I'm sending your contact information over to the [facility], and someone from their office should be contacting you shortly for close outpatient follow-up. Just in case, I'm giving you a referral for one of their multi share program coordinator, Dr. Holliday. Take all medications as prescribed. Return to the emergency department with any worsening of your symptoms, new or concerning symptoms not addressed during this current emergency department visit, or with any acute distress. Prescriptions: Furosemide [Lasix] 20 mg PO QDAY #5 tablet Albuterol Mdi (or & Nicu Only) [ProAir HFA Inhaler] 2 puff IH QID PRN #8.5 gram PRN Reason: Shortness Of Breath ALBUTEROL NEB's [Proventil 0.083% NEBS] 2.5 mg IH TID PRN #1 box PRN Reason: Wheezing Referrals: REBA HOLLIDAY MD [Staff Physician] - 3-5 Days Time of Disposition: 02:16
[2021-07-01 23:34] LABS: Basophils # (Auto) 0.1 K/mm3 (0.0-0.1); Basophils % (Auto) 0.9 % (0.0-1.8); Eosinophils # (Auto) 0.2 K/mm3 (0.0-0.4); Eosinophils % (Auto) 3.4 % (0.0-4.3); Hematocrit 45.4 % (35.5-45.6); Hemoglobin 14.9 gm/dl (11.8-15.2); Lymphocytes # (Auto) 2.4 K/mm3 (1.2-5.4); Lymphocytes % (Auto) 40.1 % (13.4-35.0); Mean Corpuscular HGB Conc 33 % (32-34); Mean Corpuscular Volume 101 fl (84-94); Monocytes # (Auto) 0.4 K/mm3 (0.0-0.8); Monocytes % (Auto) 7.1 % (0.0-7.3); Platelet Count 188 K/mm3 (140-440); Red Blood Count 4.51 M/mm3 (3.65-5.03)
[2021-07-01 23:51] LABS: BUN/Creatinine Ratio 14; Blood Urea Nitrogen 19 mg/dL (9-20); Hemolysis Index 17
[2021-07-02] MEDS ORDERED: FUROSEMIDE 20 MG TAB PO ONE (00:28)
[2021-07-02] MEDS ORDERED: ASPIRIN 81 MG TAB CHEW PO ONE (00:28)
--- NOTE | 2021-07-02 13:32 | Electrocardiograph Report ---
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
== END 2021-07-02 02:45 | disposition home or self-care (01) ==
LOC: ED 22:11
DX: R07.89 Other chest pain (principal); I11.0 Hypertensive heart disease with heart failure; I50.9 Heart failure, unspecified
CPT/HCPCS: 36415; 71046; 80048; 83880; 84484; 85025; 93005